=== PATIENT | male | born 1985 | race Caucasian/White ===

== ENCOUNTER 2016-07-23 08:17 | Day surgery (SDC) | payer MEDICARE, OTHER ==
[2016-07-23] VITALS (12 sets, daily range): BP systolic 116–147; BP diastolic 7–99; PULSE 77–105; RESP 12–24; O2SAT 70–96
[~2016-07-23] VITALS: Ht 174 cm; Wt 162.9 kg
[~2016-07-23 08:17] MED LIST: Clindamycin Inj 900 MG in IV Premix 1 EACH IV ONE; IBUP-1827 PO; Lactated Ringer's 1,000 ML IV SCH
[2016-07-23] MEDS ORDERED: MetoCLOpramide 5 mg/mL 2 mL Inj ONE (08:18)
[2016-07-23] MEDS ORDERED: Dexamethasone 4 mg/mL Inj ONE (08:18)
[2016-07-23] MEDS ORDERED: Ondansetron 2 mg/mL 2 mL Inj ONE (08:18)
[2016-07-23] MEDS ORDERED: Propofol 10,000 mCg/mL 20 mL Inj ONE (08:18)
[2016-07-23] MEDS ORDERED: fentaNYL-PF 50 mCg/mL 2 mL Inj ONE (08:18)
[2016-07-23] MEDS ORDERED: Succinylcholine Chloride 20 mg/mL 5 mL Inj ONE (08:18)
[2016-07-23] MEDS ORDERED: Remifentanil 1 mg/3 mL Inj ONE (08:18)
[2016-07-23] MEDS ORDERED: Lactated Ringer's 1,000 ML IV ONE (09:10)
[2016-07-23] MEDS ORDERED: Lactated Ringer's 500 ML IV PRN (11:01)
[2016-07-23] MEDS ORDERED: Lactated Ringer's 1,000 ML IV SCH (11:01)
--- NOTE | 2016-07-23 11:01 | PCM.HPANE ---
Patient Data Surgeon Admitting Provider: Attending Provider:Jose Antonio Hairston MD Primary Care Physician:Rubens Other Provider:Keely Yip Anesthesia Reason for Visit Right Ac Joint Arthritis, Instability Ht/WT & BMI Height (Feet): 5 Height (Inches): 8.5 Weight (Kilograms): 162.93 Body Mass Index 53.00 Allergies Coded Allergies: amoxicillin (Verified Allergy, Severe, SWELLING, 07/18/16) benzonatate (Verified Allergy, Severe, shortness of breath, 07/18/16) Sulfa (Sulfonamide Antibiotics) (Verified Allergy, Unknown, UNKNOWN, ) Past Anesthesia History Anesthesia History: Denies:: Anesthesia Reactions, Malignant Hyperthermia Diabetes History Hx Diabetes?: No MRSA MRSA: No Medications Reported Medications Ibuprofen 600 Mg [id number] Mg PO TID PRN For Pain Ref 0 07/18/16 Discontinued Scripts Ondansetron ODT 8 Mg Tab.rapdis8 Mg PO QID #20 TABLET Prov:Jose Antonio Talamantes MD 03/21/16 Methocarbamol (Robaxin-750)750 Mg Tablet1,500 Mg PO QID PRN For Spasm #40 TAB Prov:Jose Antonio Talamantes MD 03/21/16 Hydrocodone-Acetaminophen 5-325 mg 1 Each Tablet1-2 Tablet PO Q4H PRN For Pain # 20 TABLET Prov:Jose Antonio Talamantes MD 03/21/16 Bismuth Subsalicylate (Pepto-Bismol)262 Mg Tab.kvhh454 Mg PO PRN PRN For Diarrhea or Loose Stool #1 PKG Ref 0 Prov:Jose Antonio Talamantes MD 12/10/15 Hydrocodone-Acetaminophen 5-325 mg 1 Each Tablet1 Tablet PO Q4H PRN For Pain # 20 TABLET Prov:Farrah Nsasar MD 11/19/15 Ibuprofen 600 Mg [id number] Mg PO TID PRN For Pain #30 TABLET Prov:Scooby Peters MD 11/03/15 Hydrocodone-Acetaminophen 5-325 mg 1 Each Tablet1-2 Tablet PO Q4H PRN For Pain # 20 TABLET Prov:Attila Sauceda MD 08/31/15 History History of ENT Problems?: Yes HEENT History: Positive for:: Sinus Problem (SEASONAL ALLERGIES) Denture Type: None Teeth Condition: Within Normal Limits Other HEENT Pertinent History: S/P TONSILLECTOMY Hx of Heart Problems?: Yes Cardiovascular History: Positive for:: Chest Pain (11/2013 ED VISIT-DEEMED NON-CARDIAC) Denies:: Congestive Heart Failure Heart Murmur Hypertension Hx of Respiratory Problem?: Yes Respiratory History: Positive for:: Asthma (Mild - last 5+ yrs ago) Use of C-PAP Machine (IVANIA+ ?CPAP SLEEP STUDY 09/2014) Denies:: Dyspnea (HX OF 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 (Leg rash - chronic) Denies:: Pressure Ulcers Hx Musculoskeletal Problems?: Yes Musculoskeletal History: Positive for:: Back Injury (HX OF NECK STRAIN) Musculoskeletal Trauma (C/OF BICEPS TENDONITIS,CLOSED FX SCAPULA/GLENOID,HX RT SHOULDER DISLOCATION) Osteoarthritis (RT AC JOINT ARTHRITIS/IMPINGEMENT=CURRENT PROBLEM) Hx of Psycho/Social Problems?: Yes Psycho Social History: Positive for:: Anxiety (HX OF PANIC ATTACKS) Hx Surgeries?: Yes (B/L CTR'S W/ LT REVISION,KYLAH, APPY, TONSILS) Hx Any Other Health Problems?: Yes Other History: Positive for:: Hospitalization (3months old - carbon dioxide poisoning) Denies:: Cancer Endocrine Disease Thyroid Disease History Blood Transfusions: Denies:: Blood Transfusions Hx Diabetes: No Hx Alcohol Use: NoHx Substance Use: No Smoking Status: Current Some Day Smoker Have You Smoked inLast 12 mo: Yes Stop/Bang S-Snoring: Do You Snore Loudly: Yes T-Tired: feel tired, fatigued: Yes O-Obsered: Observed not breath: Yes P-Blood Pressure: treated: No B- Body Mass Index > 35 kg/m2: Yes A- Age over 50: No N- Neck Large Circumference: Yes G- Gender Male: Yes IVANIA Total Score: 6 Risk Assessment Category Category 1A: Patient has history of documented sleep apnea, and HAS NOT received any narcotic, sedative or anesthesia administration during this stay. Category 1B: Patient has history of documented sleep apnea, and HAS received any narcotic , sedative or anesthesia administration during this stay Category 2: Patient has SUSPECTED Obstructive Sleep Apnea, and HAS received any narcotic , sedative or anesthesia administration during this stay. Category 3: Patient has SUSPECTED Obstructive Sleep Apnea and HAS NOT received narcotic, sedative or anesthesia administration during this stay. Category 4: Outpatient in Procedural Areas with known sleep apnea or who screen positive for High Risk via the STOP/BANG questionnaire. Exam Exam General Appearance: Alert, Oriented X3, Cooperative, No Acute Distress HEENT/AIRWAY: MP 3 Lungs: Clear to Auscultation Heart: Exam Unremarkable Plan Impression Patient chart reviewed, patient interviewed and anesthestic plan with risks, benefits, and alternatives discussed, and informed consent obtained. ASA Physical Status: ASA3 Severe Disease Anesthetic Plan: GA, Regional Block Bene/Risks/Altern/Consents: Yes HP Complete Prior to Induction: Yes Franklyn Calixto MD July 23, 2016 08:18
[2016-07-23] MEDS ORDERED: EPHEDrine Sulfate 50 mg/mL Inj IVPUSH PRN (11:05)
[2016-07-23] MEDS ORDERED: Phenylephrine 10,000 mCg/mL Inj IVPUSH PRN (11:05)
[2016-07-23] MEDS ORDERED: Dexamethasone 4 mg/mL Inj IVPUSH PRN (11:05)
[2016-07-23] MEDS ORDERED: HYDROmorphone 1 mg/mL Inj IVPUSH PRN (11:05)
[2016-07-23] MEDS ORDERED: fentaNYL-PF 50 mCg/mL 2 mL Inj IVPUSH PRN (11:05)
[2016-07-23] MEDS ORDERED: Ondansetron 2 mg/mL 2 mL Inj IVPUSH PRN (11:05)
[2016-07-23] MEDS ORDERED: MetoCLOpramide 5 mg/mL 2 mL Inj IVPUSH PRN (11:05)
[2016-07-23] MEDS ORDERED: Ropivacaine-PF 0.5% 30 mL Inj INJ ONE (11:13)
[2016-07-23] MEDS ORDERED: HYDROcodone-APAP 5-325 mg Tablet PO PRN (11:25)
--- NOTE | 2016-07-23 11:41 | PCM.ORTHOP ---
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 Without the qualified banking assistant being present, it would have extended the operative procedure and made the procedure technically more difficult to perform. INDICATIONS: The patient is [place] [facility] who has developed recurrent instability of the right shoulder. X-rays show the glenohumeral joint to be well maintained. The risks, benefits, and alternatives of surgery were discussed with the patient. The risks included but were not limited to infection, bleeding, damage to vessels and nerves, loss of motion, continued pain, complications due to anesthesia including myocardial infarction, stroke, , etc. The patient stated understanding of the nature of the surgical procedure and gave written and verbal consent to proceed. PROCEDURE: The patient was brought into the operating room and placed supine on the operating room table. A interscalene block was placed in the right shoulder for postoperative pain management, followed by the administration of general anesthesia. Preoperative antibiotics was given The patient was then placed into the lateral decubitus position with the right side up. An axillary role was placed and the legs were padded as necessary to avoid pressure points. The patient was maintained in position with a beanbag evacuation device. A thorough examination of the right shoulder under anesthesia was performed. The patient had 150 degrees of forward elevation and 120 degrees of abduction. In 90 degrees of abduction the patient had 90 degrees of external rotation and 70 degrees of internal rotation. The right shoulder was then examined for stability. In neutral rotation there was 4/5 anterior instability. The right upper extremity was then prepped and draped in the usual fashion. The arm was suspended with a well-padded sleeve with eight pounds of balanced suspension in the arthroscopic position. A standard posterior portal was made inferior and medial to the posterior corner of the acromion. The incision was made only through skin. The trocar was advanced through the soft tissue with a blunt- tipped obturator. This was inserted into the glenohumeral joint without difficulty. The arthroscope was placed through the cannula and attached to the video monitor system. Inflow was achieved using the arthroscopic pump. The pressure was maintained at 35-40 mm of mercury throughout the entire procedure. Once the arthroscope confirmed visualization within the shoulder joint, it was advanced anteriorly into the rotator interval beneath the biceps tendon. A Wissinger elicia was then used to create the anterior portal from inside-out. A second anterior stab wound incision was made only through skin and an anterior cannula was placed. A routine arthroscopic survey was begun Survey: anterior labral tear 1-4:30 PM, distal clavicle osteophytes Complex surgical procedure: This was an extremely complex surgical procedure which took approximately 30-40% longer to complete than a standard repair. Without the use of a qualified first leveler, this surgical procedure would have taken even considerably longer and been unable to be performed arthroscopically Anterior labral bankart repair, no remplissage: Attention was then directly toward anterior labral repair. An anterior mid-glenoid portal was established with an outside in technique just above the subscapularis. With the arthroscope in the anterior superior viewing portal there was evidence of significant tearing of the anterior inferior labrum, Bankart lesion. Using a Liberator elevator and a blunt tipped cantwell bar, a full thickness capsulolabral elevation was carried out down to the 5:30 o'clock position. The fibers of the subscapularis were well seen. The medial neck of the glenoid was well maintained and lightly abraded using the motorized shaver. The articular cartilage margin along with the anterior glenoid rim was lightly debrided using a curette. The first anchor was placed in the 4:30 position using the curved garage construction equipment mechanic for suture-Isaiah anchor. The anchor was deployed and seated with excellent secure fixation. The sutures from this anchor were then passed beginning with the 1st stitch at the 5:00 position and advancing the tissue from inferior to superior and from medial to lateral. This was a full thickness labral bite which restored an excellent buttress inferiorly. After the 1st labral stitch was secured, the humeral head was well centralized on the glenoid. The 2nd stitch from the anterior inferior most anchor was passed taking a plication bite as well as a full thickness labral bite creating a hospital corner repair with excellent secure fixation. 2 total anchors were used with each successive placed at more proximally with excellent fixation purchase. The remaining sutures were similarly passed, placing full thickness labral bites as well as capsular advancement, advancing the anterior inferior capsule and labrum from inferior to superior and medial to lateral. There appeared to be excellent episcopal of the anterior labral bumper. The drive- through sign was eliminated. The humeral head appeared to be well centralized, visualizing from both anterior superior and the posterior cannula. There was excellent episcopal of the bumper and no further evidence for instability. Closure: The arm was then taken out of traction. The instability both in neutral rotation and in abduction external rotation was eliminated. The humeral head was well centralized. The arthroscope was then used to visualize the repair both from the anterior superior viewing portal and the posterior viewing portal which showed the humeral head to be well balanced with excellent and appropriate tissue tension. The glenohumeral joint was then copiously irrigated with an additional liter of lactated Ringers solution and excess fluid was drained. The arthroscopic portals were closed with #4-0 Nylon and Steri-Strips. A dry sterile dressing was applied, followed by a neutral rotation sling. The patient was awakened in the Operating Room and transported to the Recovery Room in satisfactory condition. He appeared to tolerate the procedure well. There were no complications noted. Nonweightbearing to affected upper extremity. Please leave sling on at all times. You may remove sling 3 times a day to move the elbow wrist and fingers. Do not move your shoulder. Please keep the affected extremity elevated when possible. You may use ice and/or heat as needed for comfort. Follow-up in 2 weeks with me with for suture removal and Steri-Strip application. Follow-up with me at 6 weeks with progression of physical therapy as per my protocol (please ask me for protocol if needed). Follow-up with me before full release at 3 months postop. Within the subacromial space there was no fraying on the undersurface of the coracoacromial ligament consistent with impingement. Then the AC joint capsule was opened with care to preserve the CA ligament. There was inferior spurring as well as synovitis and arthritic changes at the AC joint and a decision was made to proceed with distal clavicle excision. Using a motorized bur working initially from posteriorly and then anteriorly, the outer 10 mm of the distal clavicle were excised. The arthroscope was then positioned anteriorly within the AC resection site confirming an excellent level of resection. Grafts, Implants: Implants-See Implant Record Complications There were no periprocedural complications identified. Condition Stable Anesthetic Administered: GA Catheters: None Output, Estimated Blood Loss: 5 Blood Admin during surgery: No Surgical Cast or Splint: Shoulder Immobilizer Surgical Specimen Removed: No Specimen sent to Pathology: No copies to: Jose Antonio Hairston MD, Christopher L MD July 23, 2016 11:40
--- NOTE | 2016-07-23 12:13 | PCM.ANEP1 ---
Post Anesthesia Phase 1 PACU Phase 1 Assessment Date of Service: July 23, 2016 Vital Signs Vital Signs Date Time Temp Pulse Resp B/P Pulse Ox O2 Delivery O2 Flow Rate FiO2 07/23/16 12:07 81 18 126/71 96 Nasal Cannula 3 07/23/16 12:01 86 24 132/77 95 Nasal Cannula 3 07/23/16 11:50 91 23 145/77 96 Simple Mask 10 07/23/16 11:45 91 23 135/77 96 Simple Mask 10 07/23/16 11:40 102 12 133/73 85 Simple Mask 10 07/23/16 11:30 36.6 105 147/99 70 Simple Mask 10 07/23/16 09:12 36.4 89 17 116/68 96 Room Air Anesthetic Administered: GA Level of Alertness: Sleepy, easy to arouse MORRISSEY's with Equal Strength: Yes Pain: Yes Nausea or Vomiting: No Cardiovascular Function and Hy: Yes Oxygen Delivery: Simple Mask Lungs: Clear to Auscultation Complications: No Franklyn Calixot MD July 23, 2016 12:13
== END 2016-07-23 23:59 | disposition home or self-care (01) ==
LOC: SAS 08:17
PROVIDERS: ATTEND Orthopaedic Surgery
DX: M25.311 Other instability, right shoulder (principal); S43.81XA Sprain of other specified parts of right shoulder girdle, initial encounter; M75.41 Impingement syndrome of right shoulder; M19.011 Primary osteoarthritis, right shoulder; S42.144D Nondisplaced fracture of glenoid cavity of scapula, right shoulder, subsequent encounter for fracture with routine healing; M75.21 Bicipital tendinitis, right shoulder; W00.0XXD Fall on same level due to ice and snow, subsequent encounter; Y92.89 Other specified places as the place of occurrence of the external cause; G47.33 Obstructive sleep apnea (adult) (pediatric); G56.21 Lesion of ulnar nerve, right upper limb; E66.01 Morbid (severe) obesity due to excess calories; J45.909 Unspecified asthma, uncomplicated; F41.9 Anxiety disorder, unspecified; F17.210 Nicotine dependence, cigarettes, uncomplicated; Z68.43 Body mass index [BMI] 50.0-59.9, adult
CPT/HCPCS: 29806; 29824; 76942; C1713; J0330; J1100; J1885; J2405; J2765; J2795; J3010; J7120